=== PATIENT | female | born 1930 | race Caucasian/White ===

== ENCOUNTER → 2016-07-11 | Outpatient (CLI) | payer MEDICARE, BC ==
[2016-07-11 10:51] LABS: ALT 39 U/L (9-52); AST 25 U/L (14-36); Alkaline Phosphatase 85 U/L (38-126); Anion Gap 10 mmol/L; Blood Urea Nitrogen 26 mg/dL (7-17); Calcium 9.7 mg/dL (8.4-10.2); Carbon Dioxide 32 mmol/L (22-30); Chloride 102 mmol/L (98-107); Cholesterol 112 mg/dL (<200); Glucose 104 mg/dL (74-99); HDL Cholesterol 35 mg/dL (40-60); Non-African American GFR(MDRD) >60 (>60 ml/min/1.73 sqM); Sodium 144 mmol/L (137-145); Total Bilirubin 0.6 mg/dL (0.2-1.3); Total Protein 6.9 g/dL (6.3-8.2); Triglycerides 200 mg/dL (<150)
== END | disposition home or self-care (01) ==
LOC: LABWHC1 10:13
PROVIDERS: ATTEND Family Medicine
DX: E78.2 Mixed hyperlipidemia (principal); I10 Essential (primary) hypertension
CPT/HCPCS: 36415; 80053; 80061

== ENCOUNTER → 2016-12-13 | Outpatient (CLI) | payer MEDICARE, BC ==
[2016-12-13 10:33] LABS: CH 28.8; CHCM 32.2; HCT 40.6 % (34.0-46.0); HDW 2.39; HGB 12.7 gm/dL (11.4-16.0); MCH 28.1 pg (25.0-35.0); MCHC 31.3 g/dL (31.0-37.0); MCV 89.8 fL (80.0-100.0); Mean Platelet Volume 8.3; RBC 4.52 m/uL (3.80-5.40); RDW 13.2 % (11.5-15.5); WBC 11.5 k/uL (3.8-10.6)
[2016-12-13 11:17] LABS: ALT 47 U/L (9-52); AST 23 U/L (14-36); Alkaline Phosphatase 96 U/L (38-126); Anion Gap 10 mmol/L; Blood Urea Nitrogen 30 mg/dL (7-17); Calcium 9.4 mg/dL (8.4-10.2); Carbon Dioxide 29 mmol/L (22-30); Chloride 103 mmol/L (98-107); Cholesterol 82 mg/dL (<200); Glucose 99 mg/dL (74-99); HDL Cholesterol 34 mg/dL (40-60); Non-African American GFR(MDRD) 58 (>60 ml/min/1.73 sqM); Potassium 4.4 mmol/L (3.5-5.1); Sodium 142 mmol/L (137-145); Total Bilirubin 0.7 mg/dL (0.2-1.3); Total Protein 6.3 g/dL (6.3-8.2); Triglycerides 132 mg/dL (<150)
== END | disposition home or self-care (01) ==
LOC: LABWHC1 09:46
PROVIDERS: ATTEND Internal Medicine Cardiovascular Disease
DX: I10 Essential (primary) hypertension (principal); E78.2 Mixed hyperlipidemia; R94.31 Abnormal electrocardiogram [ECG] [EKG]
CPT/HCPCS: 36415; 80053; 80061; 85027

== ENCOUNTER 2016-12-29 11:15 | Emergency (ER) | payer MEDICARE, BC ==
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
--- NOTE | 2016-12-29 12:08 | XR ---
EXAMINATION TYPE: XR knee complete RT DATE OF EXAM: 12/29/2016 COMPARISON: NONE HISTORY: Pain TECHNIQUE: Four views are submitted. FINDINGS: Severe narrowing the joint spaces with hypertrophic changes and chondrocalcinosis. Diffuse osteopenia noted. There is subcutaneous edema Osseous structures are intact. No acute fracture seen. IMPRESSION: 1. No acute fracture or dislocation.
--- NOTE | 2016-12-29 12:58 | US ---
EXAMINATION TYPE: US venous doppler duplex LE BI DATE OF EXAM: 12/29/2016 11:50 AM COMPARISON: NONE CLINICAL HISTORY: Pain. Swelling SIDE PERFORMED: Bilateral TECHNIQUE: The lower extremity deep venous system is examined utilizing real time linear array sonog cierra with graded compression, doppler sonography and color-flow sonography. VESSELS IMAGED: External Iliac Vein (EIV) Common Femoral Vein Deep Femoral Vein Greater Saphenous Vein * Femoral Vein Popliteal Vein Small Saphenous Vein * Proximal Calf Veins (* superficial vessels) No popliteal fossa lesion is seen. Right Leg: Negative for DVT Left Leg: Negative for DVT IMPRESSION: THIS EXAMINATION IS NEGATIVE FOR DVT IN BOTH LEGS.
[2016-12-29 13:19] VITALS: PULSE 60; RESP 18; TEMP 97.3
[2016-12-29 13:44] VITALS: BP 172/66
== END 2016-12-29 13:44 | disposition home or self-care (01) ==
LOC: EC 11:15
DX: L03.115 Cellulitis of right lower limb (principal); R22.41 Localized swelling, mass and lump, right lower limb; I10 Essential (primary) hypertension; E78.5 Hyperlipidemia, unspecified; Z88.8 Allergy status to other drugs, medicaments and biological substances; Z79.82 Long term (current) use of aspirin; Z79.899 Other long term (current) drug therapy
CPT/HCPCS: 93970; 99284

== ENCOUNTER → 2018-03-29 | Outpatient (CLI) | payer MEDICARE, BC ==
--- NOTE | 2018-03-29 13:51 | US ---
EXAMINATION TYPE: US venous doppler duplex LE RT DATE OF EXAM: 03/29/2018 1:20 PM COMPARISON: US 12/29/16 CLINICAL HISTORY: M79.604 Pain in right leg. Cellulitis, swelling right leg SIDE PERFORMED: Right TECHNIQUE: The lower extremity deep venous system is examined utilizing real time linear array sonog cierra with graded compression, doppler sonography and color-flow sonography. VESSELS IMAGED: External Iliac Vein (EIV) Common Femoral Vein Deep Femoral Vein Greater Saphenous Vein * Femoral Vein Popliteal Vein Small Saphenous Vein * Proximal Calf Veins (* superficial vessels) Right Leg: Negative for DVT Difficult for patient to tolerate exam because of soreness, and inability to position leg. Diffuse soft tissue edema noted. IMPRESSION: 1. No diagnostic evidence of DVT as visualized.
== END ==
LOC: RADUSWWP 12:48
PROVIDERS: ATTEND Family Medicine
DX: M79.604 Pain in right leg (principal)

== ENCOUNTER → 2018-06-04 | Outpatient (CLI) | payer MEDICARE, BC ==
[2018-06-04 11:03] LABS: HCT 41.4 % (34.0-46.0); HGB 13.6 gm/dL (11.4-16.0); MCH 28.2 pg (25.0-35.0); MCHC 32.7 g/dL (31.0-37.0); MCV 86.3 fL (80.0-100.0); Mean Platelet Volume 7.5; Platelet Count 267 k/uL (150-450); RDW 13.2 % (11.5-15.5)
[2018-06-04 15:54] LABS: Albumin 4.3 g/dL (3.80-4.90); Albumin/Globulin Ratio 2.69 (1.20-2.10); Anion Gap 6.6 mmol/L (4.00-12.00); Calcium 9.9 mg/dL (8.7-10.3); Carbon Dioxide 32.4 mmol/L (21.6-31.8); Globulin 1.6 g/dL (2.1-3.7); LDL Cholesterol,Calculated 60.2 mg/dL (0.0-131.0); Potassium 3.9 mmol/L (3.5-5.5); Total Bilirubin 0.5 mg/dL (0.3-1.2); Total Protein 5.9 g/dL (6.2-8.2); VLDL Calculation 38.8 mg/dL (5.00-40.00)
== END | disposition home or self-care (01) ==
LOC: LABWHC1 10:11
PROVIDERS: ATTEND Family Medicine
DX: Z00.01 Encounter for general adult medical examination with abnormal findings (principal); E66.3 Overweight; R53.83 Other fatigue
CPT/HCPCS: 36415; 80053; 80061; 85027

== ENCOUNTER 2020-09-20 09:44 | Emergency (ER) | payer MEDICARE, BC ==
[2020-09-20] MEDS ORDERED: ROCURONIUM 10 MG/ML (5 ML VIAL) IV STA (09:49)
[2020-09-20] MEDS ORDERED: MIDAZOLAM 1 MG/ML 5 ML VIAL IV STA (09:49)
[2020-09-20] MEDS ORDERED: ATROPINE SULFATE 0.1 MG/ML 10ML SYRINGE IV STA (09:50)
[2020-09-20] MEDS ORDERED: CALCIUM CHLORIDE 100 MG/ML 10 ML SYRINGE IVP STA (10:02)
[2020-09-20 10:10] VITALS: BP 121/103; PULSE 21; RESP 20
--- NOTE | 2020-09-20 10:53 | ED ---
General Adult HPI - General Chief complaint: Cardiac Arrest/CPR Stated complaint: unresponsive Source: family, EMS, RN notes reviewed, old records reviewed Mode of arrival: EMS Limitations: no limitations - History of Present Illness Initial comments: 89-year-old female who had initially called 911 for evaluation of lightheadedness, diaphoresis. Patient was found to be bradycardic during transport. She did become unresponsive requiring BVM and transcutaneous pacing. She was given atropine by EMS prior to arrival. Upon arrival the patient is unresponsive to painful stimuli. She has only agonal respirations. She has a baseline bradycardia with intermittent capture with transcutaneous pacing. Initial CODE STATUS is not known by EMS. - Related Data Home Medications Medication Instructions Recorded Confirmed Potassium Chloride [Klor-Con 8 meq PO DAILY 09/24/15 12/29/16 Sprinkle] dilTIAZem HCL [Diltiazem HCl] 30 mg PO DAILY 09/24/15 12/29/16 hydroCHLOROthiazide [Hydrodiuril] 50 mg PO DAILY 09/24/15 12/29/16 Aspirin [Children's Aspirin] 81 mg PO DAILY 12/29/16 12/29/16 Calcium Carbonate/Vitamin D3 1 tab PO DAILY 12/29/16 12/29/16 [Calcium 500-Vit D3 200 Tablet] Diltiazem HCl [Cartia Xt] 180 mg PO DAILY 12/29/16 12/29/16 Losartan Potassium [Cozaar] 100 mg PO DAILY 12/29/16 12/29/16 Multivitamins, Thera [Multivitamin 1 tab PO DAILY 12/29/16 12/29/16 (formulary)] Palco-3 Fatty Acids [Palco-3] 2,000 mg PO BID 12/29/16 12/29/16 Rosuvastatin [Crestor] 20 mg PO HS 12/29/16 12/29/16 atenoloL [Tenormin] 50 mg PO HS 12/29/16 12/29/16 Previous Rx's Medication Instructions Recorded Cephalexin [Keflex] 500 mg PO Q12HR 10 Days cap 12/29/16 Allergies Allergy/AdvReac Type Severity Reaction Status Date / Time enalapril maleate AdvReac Cough Verified 12/29/16 11:33 [From Vasotec] enalaprilat dihydrate AdvReac Cough Verified 07/07/17 11:33 [From Vasotec] Review of Systems ROS Statement: Those systems with pertinent positive or pertinent negative responses have been documented in the HPI. ROS Other: All systems not noted in ROS Statement are negative. Past Medical History Past Medical History: Hyperlipidemia, Hypertension History of Any Multi-Drug Resistant Organisms: None Reported Past Surgical History: Bowel Resection, Cholecystectomy, Hysterectomy Past Psychological History: No Psychological Hx Reported Past Alcohol Use History: Rare Past Drug Use History: None Reported General Exam Limitations: no limitations General appearance: obtunded, in distress Head exam: Present: atraumatic, normocephalic Eye exam: Present: normal appearance, PERRL ENT exam: Present: mucous membranes dry Neck exam: Absent: tenderness, meningismus Respiratory exam: Present: other (Bilateral air entry with BVM) Cardiovascular Exam: Present: normal rhythm, bradycardia (Bradycardic in the 30s, improved with pacing) GI/Abdominal exam: Present: soft. Absent: distended, tenderness, guarding Extremities exam: Present: normal inspection. Absent: normal capillary refill Neurological exam: Absent: alert, oriented X3 Skin exam: Present: dry, cyanosis Course Vital Signs 09/20/20 09/20/20 09/20/20 09:48 10:00 10:07 Pulse Rate 55 L 21 L Respiratory 6 L 20 Rate Blood Pressure 107/55 95/36 121/103 O2 Sat by Pulse 94 L 100 100 Oximetry Procedures - Intubation Sedative: Versed Mg Given: 2 Paralytic: Rocuronium Mg Given: 50 Laryngoscope: Le Size: 3 ET Tube Size: 8 ET Tube Uncuffed: No Tube Secured Depth (cm): 22 Tube Secured Location: lips Tube Placement Confirmation: visualized tube passing through cords, equal breath sounds bilaterally, no breath sounds over epigastrium, confirmation by capnometry Patient Tolerated Procedure: well Intubation Complications: none Medical Decision Making - Medical Decision Making 89-year-old female who went presented periarrest. Patient bradycardic nonresponsive, patient does not have adequate respirations. Prior to CODE STATUS I did intubate this patient with an 80 ET tube without complication. Patient's daughter was able to present to the emergency department who did indicate that the patient was a DO NOT RESUSCITATE. At this time aggressive measures to resuscitate this patient were ceased. She had been given resuscitation measures including epinephrine, atropine prior to the knowledge of her CODE STATUS. Ultimately after discussion with the patient's daughter the endotracheal tube was removed, the patient had agonal respirations and bradycardia and ultimately time of was called at 1022. I did also discuss case with the patient's son who is a pipefitter. The primary care physician Dr. Cheng was informed as well as the medical assistant float. Disposition Clinical Impression: Cardiac arrest Disposition: Condition: Undetermined Is patient prescribed a controlled substance at d/c from ED?: No Referrals: None,Stated [Primary Care Provider] - 1-2 days Preliminary Cause of : Bradycardic, cardio pulmonary arrest
== END 2020-09-20 12:56 | disposition expired ==
LOC: EC 09:44
DX: I46.9 Cardiac arrest, cause unspecified (principal); E78.5 Hyperlipidemia, unspecified; I10 Essential (primary) hypertension; Z79.899 Other long term (current) drug therapy; Z90.49 Acquired absence of other specified parts of digestive tract; Z90.710 Acquired absence of both cervix and uterus; Z88.8 Allergy status to other drugs, medicaments and biological substances
CPT/HCPCS: 99285; 96374; 96375 ×2; 31500; J0461; J2250; 94002